=== PATIENT | female | born 1955 | race Caucasian/White ===

== ENCOUNTER 2016-05-25 13:45 | Inpatient (IN) | payer OTHER ==
[~2016-05-25] VITALS: Ht 167.6 cm; Wt 70.3 kg
--- NOTE | ~2016-05-25 | EKG ---
[place] [address] [facility] [place] [address] ELECTROCARDIOGRAM REPORT Name: MALU BRAND Room #: 170-3 ADM IN M.R.#: [id number] Admission: 05/25/16 Attend Phys: Donato Franco MD Discharge: Date of : 53 Report #: [id number] THIS REPORT FOR: //name// [facility] ED Test Date: 2016-05-25 Test Time: 14:32:35 Pat Name: MALU BRAND Department: Room: 170 Gender: F [employer] Announcer: TRACE : 1955 Requested By: Angelique Marley Order Number: [id number] MD: Chevy Chappell Measurements Intervals [place] Rate: 75 P: 14 IA: 134 QRS: 73 QRSD: 90 T: 19 QT: 398 QTc: 445 Interpretive Statements Sinus rhythm Borderline T wave abnormalities No previous ECG available for comparison Electronically Signed On 05-25-2016 19:11:10 CDT by Chevy Chappell [email or web address] <ELECTRONICALLY SIGNED> By: Chevy Chappell MD, [facility] 05/25/16 1911 1432 1432 Chevy Chappell MD, FACC /EPI
[~2016-05-25 13:45] MED LIST: CARISOPRODOL 3350 MG PO; CIPROFLOXACIN500 M1 PO; CLONAZEPAM; CLONAZEPAM 1 MG1 M1 PO; CYCLOBENZAPRINE; CYCLOBENZAPRINE10 MG PO; DESYREL50 MG PO; EFFEXOR; EFFEXOR XR75 MG PO; FLAGYL500 M1 PO; LAMICTAL; LAMICTAL XR100 MG PO; NAPROSYN500 MG PO; NORCO 5-325 TA1 EACH PO; ZANAFLEX4 MG PO; ZOFRAN ODT4 MG PO
[2016-05-25 13:50] VITALS: BP 132/78
[2016-05-25] MEDS ORDERED: PROMETHAZINE12.5 M1 PO (14:09)
[2016-05-25 14:33] LABS: ABSOLUTE NEUTROPHILS 2.5 thou/uL (1.4-8.2); BASOPHILS 1.1 % (0.0-2.0); EOSINOPHILS 1.7 % (0.0-3.0); HEMATOCRIT 42.1 % (37.0-47.0); HEMOGLOBIN 14.2 gm/dL (12.0-15.0); MCH 30.5 pg (26.0-34.0); MCHC 33.7 g/dL (28.0-37.0); MCV 90.4 fL (80.0-100.0); MONOCYTES 7.9 % (1.0-8.0); PLATELET COUNT 238 thou/uL (150-400); POLYS 46.3 % (36.0-66.0); RBC 4.66 mil/uL (4.20-5.00); WBC 5.3 thou/uL (4.0-11.0)
[2016-05-25 14:34] LABS: MANUAL DIFF NO
[2016-05-25 14:42] LABS: ANION GAP 9 mmol/L (7-16); BUN 4 mg/dL (7-18); CALCIUM 9.4 mg/dL (8.5-10.1); CHLORIDE 103 mmol/L (98-107); CO2 25 mmol/L (21-32); CREATININE 1.1 mg/dL (0.6-1.3); GLUCOSE 96 mg/dL (70-99); POTASSIUM 3.5 mmol/L (3.5-5.1); SODIUM 137 mmol/L (136-145)
[2016-05-25 14:50] LABS: TROPONIN-I < 0.04 ng/mL (<0.04-0.07)
[2016-05-25 17:52] VITALS: BP 129/55
== END 2016-05-25 22:09 | disposition home or self-care (01) | DRG 312 ==
LOC: ER 13:45 → EROBS 15:21 → 4S 15:50 → EROBS 17:55 → TBA 22:07
PROVIDERS: Emergency Medicine
DX: I95.1 Orthostatic hypotension (principal); F31.9 Bipolar disorder, unspecified; F60.3 Borderline personality disorder; G43.909 Migraine, unspecified, not intractable, without status migrainosus; F41.9 Anxiety disorder, unspecified; F17.210 Nicotine dependence, cigarettes, uncomplicated; Z90.710 Acquired absence of both cervix and uterus; Z88.8 Allergy status to other drugs, medicaments and biological substances

== ENCOUNTER → 2016-06-07 | Outpatient (CLI) | payer OTHER ==
[~2016-06-07] MED LIST changes: +PROMETHAZINE12.5 M1 PO
== END ==
LOC: ULTRA 02:04
DX: R55 Syncope and collapse (principal)

== ENCOUNTER 2017-07-17 11:02 | Emergency (ER) | payer OTHER ==
[~2017-07-17] VITALS: Ht 170.2 cm; Wt 59.0 kg
[2017-07-17 11:50] LABS: ABSOLUTE NEUTROPHILS 3.1 thou/uL (1.4-8.2); BASOPHILS 0.9 % (0.0-2.0); HEMATOCRIT 42.2 % (37.0-47.0); HEMOGLOBIN 14.3 gm/dL (12.0-15.0); LYMPHOCYTES 29.5 % (24.0-44.0); MCH 31.5 pg (26.0-34.0); MCHC 33.8 g/dL (28.0-37.0); MCV 93.3 fL (80.0-100.0); MONOCYTES 6.6 % (1.0-8.0); PLATELET COUNT 310 thou/uL (150-400); RBC 4.52 mil/uL (4.20-5.00); RDW 12.8 % (10.5-14.5)
[2017-07-17 11:53] LABS: CALCIUM 9.5 mg/dL (8.5-10.1); CREATININE 0.9 mg/dL (0.6-1.0)
[2017-07-17 12:00] LABS: ALBUMIN 3.8 g/dL (3.4-5.0); TOTAL BILIRUBIN 0.3 mg/dL (<0.1-1.0); TOTAL PROTEIN 7.1 g/dL (6.4-8.2)
[2017-07-17 13:11] LABS: URINE BILIRUBIN NEGATIVE (Negative); URINE BLOOD NEGATIVE (Negative); URINE CLARITY CLEAR; URINE COLOR YELLOW; URINE GLUCOSE-RANDOM* NEGATIVE (Negative); URINE KETONES NEGATIVE (Negative); URINE LEUKOCYTES NEGATIVE (Negative); URINE NITRITE NEGATIVE (Negative); URINE PROTEIN (DIPSTICK) NEGATIVE (Negative); URINE SPECIFIC GRAVITY <= 1.005 (1.005-1.035); URINE UROBILINOGEN 0.2 E.U./dl (0.2-1.0)
[2017-07-17] MEDS ORDERED: SENNA8.6 MG PO (17:44)
[2017-07-17] MEDS ORDERED: MIRALAX17 GM PO (17:44)
[2017-07-17 18:05] VITALS: BP 142/80
== END 2017-07-17 18:06 | disposition home or self-care (01) ==
LOC: ER 11:02
PROVIDERS: Physician Assistant
DX: K80.20 Calculus of gallbladder without cholecystitis without obstruction (principal); K59.00 Constipation, unspecified; F31.9 Bipolar disorder, unspecified; F41.9 Anxiety disorder, unspecified; G43.909 Migraine, unspecified, not intractable, without status migrainosus; F17.210 Nicotine dependence, cigarettes, uncomplicated; Z90.710 Acquired absence of both cervix and uterus; Z88.5 Allergy status to narcotic agent

== ENCOUNTER 2018-01-04 02:10 | Emergency (ER) | payer OTHER ==
[~2018-01-04] VITALS: Ht 170.2 cm; Wt 55.8 kg
[~2018-01-04 02:10] MED LIST changes: +MIRALAX17 GM PO; +SENNA8.6 MG PO
[2018-01-04] MEDS ORDERED: BACTRIM DS TAB1 EACH PO (02:52)
[2018-01-04 02:55] LABS: HEMATOCRIT 39.4 % (37.0-47.0); HEMOGLOBIN 13.2 gm/dL (12.0-15.0); MCH 30.8 pg (26.0-34.0); MCHC 33.6 g/dL (28.0-37.0); MCV 91.6 fL (80.0-100.0); RBC 4.3 mil/uL (4.20-5.00); RDW 13.1 % (10.5-14.5); WBC 6.3 thou/uL (4.0-11.0)
[2018-01-04 02:57] LABS: MAGNESIUM 2.1 mg/dL (1.8-2.4); POTASSIUM 4.1 mmol/L (3.5-5.1)
[2018-01-04] MEDS ORDERED: BISACODYL SUPP10 MG RECTAL (05:03)
[2018-01-04 05:15] VITALS: BP 170/80
== END 2018-01-04 05:15 | disposition home or self-care (01) ==
LOC: ER 02:10
PROVIDERS: Emergency Medicine
DX: K59.00 Constipation, unspecified (principal); R10.9 Unspecified abdominal pain; G43.909 Migraine, unspecified, not intractable, without status migrainosus; F17.210 Nicotine dependence, cigarettes, uncomplicated; Z90.710 Acquired absence of both cervix and uterus; Z88.5 Allergy status to narcotic agent; Z86.59 Personal history of other mental and behavioral disorders

== ENCOUNTER 2018-08-25 21:25 | Emergency (ER) | payer OTHER ==
[~2018-08-25] VITALS: Ht 167.6 cm; Wt 55.8 kg
[~2018-08-25 21:25] MED LIST changes: +BACTRIM DS TAB1 EACH PO; +BISACODYL SUPP10 MG RECTAL
[2018-08-25 21:59] LABS: ABSOLUTE NEUTROPHILS 5.1 thou/uL (1.4-8.2); BASOPHILS 0.6 % (0.0-2.0); EOSINOPHILS 0.2 % (0.0-3.0); HEMATOCRIT 39.2 % (37.0-47.0); HEMOGLOBIN 13.3 gm/dL (12.0-15.0); LYMPHOCYTES 19.7 % (24.0-44.0); MCHC 33.8 g/dL (28.0-37.0); MCV 91.9 fL (80.0-100.0); PLATELET COUNT 279 thou/uL (150-400); POLYS 74.5 % (36.0-66.0); RBC 4.27 mil/uL (4.20-5.00); RDW 13.6 % (10.5-14.5); WBC 6.8 thou/uL (4.0-11.0)
[2018-08-25 22:13] LABS: CALCIUM 9.4 mg/dL (8.5-10.1); CREATININE 0.7 mg/dL (0.6-1.0); POTASSIUM 4.6 mmol/L (3.5-5.1)
[2018-08-25 22:17] LABS: ALBUMIN 3.7 g/dL (3.4-5.0); TOTAL BILIRUBIN 0.5 mg/dL (<0.1-1.0); TOTAL PROTEIN 7.4 g/dL (6.4-8.2)
[2018-08-25 23:51] LABS: URINE BILIRUBIN NEGATIVE (Negative); URINE BLOOD NEGATIVE (Negative); URINE CLARITY CLEAR; URINE COLOR YELLOW; URINE GLUCOSE-RANDOM* NEGATIVE (Negative); URINE KETONES TRACE (Negative); URINE LEUKOCYTES-REFLEX TRACE (Negative); URINE NITRITE-REFLEX NEGATIVE (Negative); URINE PROTEIN (DIPSTICK) NEGATIVE (Negative); URINE UROBILINOGEN 0.2 E.U./dl (0.2-1.0)
[2018-08-26] MEDS ORDERED: PHENERGAN 25 MG25 M1 PO (00:42)
[2018-08-26] MEDS ORDERED: ZOFRAN ODT4 MG PO (00:42)
[2018-08-26 00:50] VITALS: BP 144/82
== END 2018-08-26 00:50 | disposition home or self-care (01) ==
LOC: ER 21:25
PROVIDERS: Emergency Medicine
DX: R11.2 Nausea with vomiting, unspecified (principal); K59.00 Constipation, unspecified; R05 Cough; G43.909 Migraine, unspecified, not intractable, without status migrainosus; F17.210 Nicotine dependence, cigarettes, uncomplicated; Z90.710 Acquired absence of both cervix and uterus; Z98.890 Other specified postprocedural states; Z88.5 Allergy status to narcotic agent

== ENCOUNTER 2019-01-11 15:47 | Emergency (ER) | payer OTHER ==
[~2019-01-11] VITALS: Ht 167.6 cm; Wt 54.4 kg
[~2019-01-11 15:47] MED LIST changes: +PHENERGAN 25 MG25 M1 PO
[2019-01-11 18:38] VITALS: BP 146/78
== END 2019-01-11 18:41 | disposition home or self-care (01) ==
LOC: ER 15:47
DX: K59.00 Constipation, unspecified (principal); G43.909 Migraine, unspecified, not intractable, without status migrainosus; F31.9 Bipolar disorder, unspecified; F41.9 Anxiety disorder, unspecified; F17.210 Nicotine dependence, cigarettes, uncomplicated; Z90.89 Acquired absence of other organs; Z90.710 Acquired absence of both cervix and uterus; Z98.890 Other specified postprocedural states; Z88.5 Allergy status to narcotic agent